=== PATIENT | male | born 1945 | race Caucasian/White ===

== ENCOUNTER 2018-07-01 02:19 | Emergency (ER) | payer OTHER ==
[~2018-07-01] VITALS: Ht 175.3 cm; Wt 78.0 kg
[~2018-07-01 02:19] MED LIST: DOCU-131 PO; HYDR-3237 PO; MULT-257 PO
[2018-07-01 02:20] VITALS: BP 129/84
[2018-07-01] MEDS ORDERED: ASPI-496 PO (02:39)
[2018-07-01] MEDS ORDERED: GARL10002 PO (02:43)
[2018-07-01] MEDS ORDERED: ATOR10TA9 PO (02:43)
[2018-07-01] MEDS ORDERED: IBUPROFEN 200 MG TABLET ONE (03:11)
[2018-07-01] MEDS ORDERED: METHOCARBAMOL 750 MG TABLET ONE (03:11)
[2018-07-01] MEDS ORDERED: CEPHALEXIN 500 MG CAPSULE ONE (03:17)
[2018-07-01] MEDS ORDERED: IBUPROFEN 200 MG TABLET PO ONE (03:30)
[2018-07-01] MEDS ORDERED: CEPHALEXIN 500 MG CAPSULE PO ONE (03:30)
[2018-07-01] MEDS ORDERED: METHOCARBAMOL 750 MG TABLET PO ONE (03:30)
== END 2018-07-01 03:23 | disposition home or self-care (01) ==
LOC: ED 03:17
DX: L03.116 Cellulitis of left lower limb (principal); G89.11 Acute pain due to trauma; M25.572 Pain in left ankle and joints of left foot; E78.5 Hyperlipidemia, unspecified; X50.1XXA Overexertion from prolonged static or awkward postures, initial encounter; Y93.89 Activity, other specified; Y99.8 Other external cause status; Y92.009 Unspecified place in unspecified non-institutional (private) residence as the place of occurrence of the external cause
CPT/HCPCS: 99284